=== PATIENT | male | born 1980 | race Caucasian/White ===

== ENCOUNTER 2018-04-05 12:23 | Observation (INO) ==
--- NOTE | 2018-04-05 13:24 | ED ---
HPI General Chief complaint: Medical Clearance Stated complaint: Transfer Time Seen by Provider: 04/05/18 13:04 Source: patient Mode of arrival: other (Transfer from [facility]) Limitations: other (confused) History of Present Illness HPI narrative: 37-year-old male presents the ED as a transfer from [facility] for admission to the neurosurgeon. Initial complaint was altered mental status after being found trespassing and unresponsive in a hot tub. According to accompanying paperwork the girlfriend was present but has now been placed in law enforcement custody. The EMS reported that the patient took Suboxone, Lyrica and Adderall. On presentation the patient is unable to recall any of the events of the last day or 2. He is able to tell me his name and address. He is aware of his current situation. He denies headache, dizziness, vision changes, chest pain, palpitations, shortness of breath, cough , abdominal pain, nausea, vomiting, numbness, tingling, weakness, limitations to range of motion of the extremities. He denies depression, suicidal ideation , psychiatric history. He endorses using Suboxone secondary to previous history of substance abuse. He denies using other illicit substances. Related Data Home Medications Medication Instructions Recorded Confirmed Suboxone 8 mg PO DAILY 04/05/18 04/05/18 Allergies Allergy/AdvReac Type Severity Reaction Status Date / Time No Known Allergies Allergy Verified 04/05/18 13:16 Review of Systems ROS: all other systems reviewed are negative PMFSH Social History Social History Substance History: Active Abuse Second Hand Smoke Exposure: Yes Smoking Status: Current every day smoker Tobacco Type: Cigarettes How Often Do You Have a Drink Containing Alcohol: Never Recent Travel in [facility] within the Last 8 Weeks: No Recent Out of Country Travel within the Last 8 Weeks: No Substance Abuse Detail Heroin: Substance Use Status: Active Route Used Substance Abuse: Intramuscular Reason for Use: Get High Immunization History Tetanus Immunization: Unsure Exam Narrative Exam Narrative: GENERAL: Well-nourished, well-developed white male in no acute distress, sitting up in the stretcher with the head of the bed approximately 30 degrees elevated. SKIN: Focused skin assessment warm/dry. Few abrasions on the dorsum of the left foot. HEAD: Atraumatic. Normocephalic. EYES: Pupils equal and round. No scleral icterus. No injection or drainage. ENT: No nasal bleeding or discharge. Mucous membranes pink and moist. NECK: Trachea midline. No JVD. CARDIOVASCULAR: Regular rate and rhythm. No murmur appreciated. RESPIRATORY: No accessory muscle use. Clear to auscultation. Breath sounds equal bilaterally. GASTROINTESTINAL: Abdomen soft, non-tender, nondistended. Hepatic and splenic margins not palpable. MUSCULOSKELETAL: No obvious deformities. No clubbing. No cyanosis. No edema. NEUROLOGICAL: Awake and alert. No obvious cranial nerve deficits. Motor grossly within normal limits. Normal speech. PSYCHIATRIC: Confused, cooperative Course Initial Documented Vital Signs Temperature 98.9 F 04/05/18 12:58 Pulse Rate 78 04/05/18 12:58 Respiratory Rate 17 04/05/18 12:58 Blood Pressure 129/76 04/05/18 12:58 Pulse Oximetry 100 04/05/18 12:58 Last Documented Vital Signs Temperature 98.9 F 04/05/18 12:58 Pulse Rate 89 04/05/18 16:42 Respiratory Rate 18 04/05/18 16:42 Blood Pressure 123/80 04/05/18 16:42 Pulse Oximetry 100 04/05/18 16:42 Medical Decision Making [facility] Narrative Medical decision making narrative: 37-year-old male presents the ED as a transfer from [facility] after being found unconscious in a hot tub. Workup there showed diffuse cerebral edema nd multiple positive findings on the drug screen. Dr. Esparza, neurosurgeon accepted the transfer. On presentation the patient is alert, somewhat confused, answers questions appropriately, follows commands. No focal neuro deficits. Vitals stable, non- febrile. Lab work from the outside hospital reveals white count of 16.6, hemoglobin 14.4. BUN 13, creatinine 0.86, GFR greater than 90. I spoke with Dr. Esparza. He requests MRI the patient's brain, will come to the emergency room to evaluate the patient. MRI brain without acute findings.Psychiatric screening order placed. I spoke with Dr. Velasco, resident, who agrees to accept the patient for observation to the medicine service. Please see their notes for disposition. Medical Screen Exam Complete: Yes Emergency Medical Condition: Yes Differential Diagnosis Differential Diagnosis: overdose versus Imaging Data Radiologist's impression: Head MRI 04/05/18 13:33 Diffusion weighted images demonstrate no evidence for acute infarction. Air- fluid level in the right maxillary sinus and small mucous retention cysts in the left maxillary sinus. The CSF spaces, ventricles and cisterns are of normal size and configuration. No hemorrhage, infarct, or mass. No abnormal areas of enhancement are identified following contrast administration. A subtle venous angioma is suspected in the right parietal region. CONCLUSION: 1. Right maxillary sinus air-fluid level, left maxillary sinus mucus retention cysts. 2. No evidence for mass, infarct or hemorrhage. No edema. Discharge Plan Discharge Disposition Patient Disposition: 30 Still Patient Physicians Team ED Provider: Clark Chao ED Midlevel Provider: Sabi Stone Primary Care Provider: Primary Care Kaylie Mckay Attending Provider: Wil Mendez Other Providers: Ted Esparza Discharge Interventions Interventions: Vital Signs Last Done: 04/05/18 16:42 Status ED Status: Admitted Observation Patient
[2018-04-05] MEDS ORDERED: Gadobutrol PF 7.5 MMOL/7.5 ML Vial (for RAD) IV.SIG ONE (14:54)
--- NOTE | 2018-04-05 15:07 | MR ---
EXAM DATE: 04/05/2018 2:50 PM EDT AGE/SEX: 37 years / Male INDICATIONS: . Brain edema. Found unresponsive. CLINICAL DATA: This is the patient's initial encounter. Patient reports that signs and symptoms have been present for 2 days and indicates a pain score of 0/10. MEDICAL/SURGICAL HISTORY: None. None. COMPARISON: No prior exams available for comparison. TECHNIQUE: Multiplanar, multisequence examination of the brain was performed without and with 7.5 ml Gadavist (gadobutrol) contrast as a single exam dose. FINDINGS: Diffusion weighted images demonstrate no evidence for acute infarction. Air-fluid level in the right maxillary sinus and small mucous retention cysts in the left maxillary sinus. The CSF spaces, ventric les and cisterns are of normal size and configuration. No hemorrhage, infarct, or mass. No abnormal a reas of enhancement are identified following contrast administration. A subtle venous angioma is susp ected in the right parietal region. CONCLUSION: 1. Right maxillary sinus air-fluid level, left maxillary sinus mucus retention cysts. 2. No evidence for mass, infarct or hemorrhage. No edema. Electronically signed by: Scott Francis MD 04/05/2018 3:06 PM EDT
--- NOTE | 2018-04-05 17:11 | P.HPFP ---
History of Present Illness Primary Care Physician: No Primary Care Physician History of Present Illness: 37-year-old male transferred from [facility] for altered mental status and possible cerebral edema. Patient was found trespassing and unresponsive in a hot tub. Per ED note, patient and intentionally overdose with intent to harm themselves. currently in police custody. EMS reports that patient took Suboxone, Lyrica, and Adderall. Urine drug screen positive for opioids, cocaine, cannabinoids. Patient reports that he "cannot remember anything." States that he last remembers going into the hot tub. He states that he took his usual Suboxone 8 mg last night. He has past medical history of heroin use. States that he lasted here when a couple weeks ago. He states that he had no intent to hurt himself and currently does not have any suicidal thoughts. He reports that his is prescribed Lyrica for nerve pain. He denies weight loss, depressed mood, insomnia, chest pain, shortness of breath, nausea vomiting, headache, and abdominal pain Head CT at [facility] demonstrated diffuse cerebral edema. Case was discussed with Dr. Esparza, on-call neurosurgeon at [facility], accepted patient for transfer for further eval and management. PMHx: Suboxone for past Heroin use- 10years- ran out of suboxone a couple weeks ago and used heroin hx of substance use Hx of Depression and Anxiety- was on Effexor for awhile PSHx: None Allergies: none Meds: Lyrica 200mg Suboxone 8mg daily- last dose was yesterday morning FHx: None SHx: moved from [place], [place], [place] lives with in-laws and no health insurance 1 kid- 13, boy Cigarettes- half a pack/day- for 20 years IV drug use - tested for HIV and hep c years ago - Diagnosis (1) Altered mental status (2) Substance abuse (3) Elevated creatine kinase level (4) Nutrition, metabolism, and development symptoms Review of Systems Constitutional: Denies fever(s), Denies night sweats, Denies weight loss Eyes: Denies change in vision Ears, Nose, Mouth, and Throat: Denies headache(s) Cardiovascular: Denies chest pain Respiratory: Denies cough, Denies shortness of breath Gastrointestinal: Denies abdominal pain Genitourinary: Denies difficulty urinating Musculoskeletal: Denies body aches Skin/Breast: Reports sores (Sores on lower extremities) Neurologic: Denies abnormal movements, Denies abnormal speech, Denies tingling/ numbness/burning sensations Psychiatric: Denies thoughts of hurting/killing yourself PMFSH - History History Provided By: Patient, Medical Record, [employer] Associate / EMT - Medical / Surgical Hx Neg / Unobtainable Surgical History: No Previous Surgery - Surgical History Surgical History: Surgical History (Last Updated 04/05/18 @ 21:16 by Kiara Velasco MD, R2) No history of previous surgery - Family History Family History: Family History (Last Updated 04/05/18 @ 21:15 by Kiara Velasco MD, R2) Other No history of previous surgery - Social History I have reviewed the patient's Social History: Yes - Tobacco History Second Hand Smoke Exposure: Yes Tobacco Use In Past 30 Days: Yes Smoking Status: Current every day smoker Tobacco Type: Cigarettes - Alcohol History How Often Do You Have a Drink Containing Alcohol: Never - Substance Use History Substance History: Active Abuse - Substance Use Type Heroin Status: Active Route Used: Intramuscular Reason for Use: Get High - Travel History Recent Travel in the [facility] Within the Last 8 Weeks: No Recent Travel Out of the Country Within the Last 8 Weeks: No - Immunization History Tetanus Immunization: Unsure Medications and Allergies Allergies Allergy/AdvReac Type Severity Reaction Status Date / Time No Known Allergies Allergy Verified 04/05/18 13:16 Home Medications Medication Instructions Recorded Confirmed Type Suboxone 8 mg PO DAILY 04/05/18 04/05/18 History Exam Vital signs: Vital Signs 04/05/18 12:58 04/05/18 16:42 Temperature 98.9 F Pulse Rate 78 89 Respiratory Rate 17 18 Blood Pressure 129/76 123/80 Pulse Oximetry 100 100 Intake & Output 04/04/18 04/05/18 04/05/18 18:59 06:59 18:59 Weight 81.647 kg Narrative: General: Well-nourished male in no acute distress Skin: Bruises and scratches on lower extremities HEENT: Pinpoint pupils, NC/AC, no lymphadenopathy, throat clear Cardio: Regular rate rhythm, no murmurs rubs or gallops Pulmonary: Clear to auscultation bilaterally, no wheezes or crackles Abdomen: Soft, nontender, nondistended, positive bowel sounds, no guarding, no rebound Extremities: No cyanosis or edema Neuro: Alert and oriented x3 Psych: No suicidal ideation Results - Imaging Impressions Head MRI 04/05/18 13:33 Diffusion weighted images demonstrate no evidence for acute infarction. Air- fluid level in the right maxillary sinus and small mucous retention cysts in the left maxillary sinus. The CSF spaces, ventricles and cisterns are of normal size and configuration. No hemorrhage, infarct, or mass. No abnormal areas of enhancement are identified following contrast administration. A subtle venous angioma is suspected in the right parietal region. CONCLUSION: 1. Right maxillary sinus air-fluid level, left maxillary sinus mucus retention cysts. 2. No evidence for mass, infarct or hemorrhage. No edema. Caprini VTE Risk Assessment Caprini VTE Risk Assessment: No/Low Risk (score <= 1) Caprini Risk Assessment Model: Point Value = 1 Point Value = 2 Point Value = 3 Point Value = 5 Age 41-60 Minor surgery BMI > 25 kg/m2 Swollen legs Varicose veins or History of unexplained or recurrent spontaneous Oral contraceptives or hormone replacement Sepsis (< 1 month) Serious lung disease, including pneumonia (< 1 month) Abnormal pulmonary function Acute myocardial infarction Congestive heart failure (< 1 month) History of inflammatory bowel disease Medical patient at bed rest Age 61-74 Arthroscopic surgery Major open surgery (> 45 min) Laparoscopic surgery (> 45 min) Malignancy Confined to bed (> 72 hours) Immobilizing plaster cast Central venous access Age >= 75 History of VTE Family history of VTE Factor V Leiden Prothrombin [id number] Lupus anticoagulant Anticardiolipin antibodies Elevated serum homocysteine Heparin-induced thrombocytopenia Other congenital or acquired thrombophilia Stroke (< 1 month) Elective arthroplasty Hip, pelvis, or leg fracture Acute spinal cord injury (< 1 month) Prophylaxis Regimen: Total Risk Factor Score Risk Level Prophylaxis Regimen 0-1 Low Early ambulation 2 Moderate Order ONE of the following: *Sequential Compression Device (SCD) *Heparin 5000 units SQ BID 3-4 Higher Order ONE of the following medications: *Heparin 5000 units SQ TID *Enoxaparin/Lovenox 40 mg SQ daily (WT < 150 kg, CrCl > 30 mL/min) *Enoxaparin/Lovenox 30 mg SQ daily (WT < 150 kg, CrCl > 10-29 mL/min) *Enoxaparin/Lovenox 30 mg SQ BID (WT < 150 kg, CrCl > 30 mL/min) AND/OR *Sequential Compression Device (SCD) 5 or more Highest Order ONE of the following medications: *Heparin 5000 units SQ TID (Preferred with Epidurals) *Enoxaparin/Lovenox 40 mg SQ daily (WT < 150 kg, CrCl > 30 mL/min) *Enoxaparin/Lovenox 30 mg SQ daily (WT < 150 kg, CrCl > 10-29 mL/min) *Enoxaparin/Lovenox 30 mg SQ BID (WT < 150 kg, CrCl > 30 mL/min) AND *Sequential Compression Device (SCD) Assessment and Plan - Assessment (1) Altered mental status Code(s): R41.82 - Altered mental status, unspecified Status: Acute Plan: 37-year-old male transferred from [facility] for altered mental status and possible cerebral edema. Head CT at [facility] demonstrated diffuse cerebral edema. Case was discussed with Dr. Esparza, on- call neurosurgeon at [facility], accepted patient for transfer for further eval management. MRI negative for cerebral edema No active neurosurgical issues Patient is currently alert and oriented Urine drug screen was positive for opioids, cocaine, and cannabinoids Salicylate negative. Alcohol level negative HIV and hepatitis panel pending (2) Substance abuse Code(s): F19.10 - Other psychoactive substance abuse, uncomplicated Status: Acute Plan: Patient reports being currently on Suboxone 8 mg daily. Discussed with pharmacy. Unable to prescribe Suboxone while in the hospital. If patient begins to withdrawal, will consider methadone. (3) Elevated creatine kinase level Code(s): R74.8 - Abnormal levels of other serum enzymes Status: Acute Plan: Creatinine kinase at 523 Normal saline 120mls/hr continue to monitor (4) Nutrition, metabolism, and development symptoms Code(s): R63.8 - Other symptoms and signs concerning food and fluid intake Status: Acute Plan: Fluids: NS 120mls/hr Diet: regular vitals q4h, monitor I & Os DVT ppx: early ambulation
[2018-04-05] MEDS ORDERED: SUBOXONE 8 MG PO SCH (17:45)
--- NOTE | 2018-04-05 18:13 | P.CONNS ---
History of Present Illness Primary Care Provider: No Primary Care Physician History of Present Illness: CC: 37yoM intoxicated found in a hot tub, altered mental status and outside hospital imaging suggesting cerebral edema. Seen here and following commands though confused. MRI Brain performed and read as normal, no evidence of edema. History consistent with intoxication, outside imaging not sent for review. Patient alert and oriented, following commands here though exam inconsistent. PMFSH - History History Provided By: Patient, Medical Record, Roofing Tile Sorter / EMT - Tobacco History Second Hand Smoke Exposure: Yes Tobacco Use In Past 30 Days: Yes Smoking Status: Current every day smoker Tobacco Type: Cigarettes - Alcohol History How Often Do You Have a Drink Containing Alcohol: Never - Substance Use History Substance History: Active Abuse - Substance Use Type Heroin Status: Active Route Used: Intramuscular Reason for Use: Get High - Travel History Recent Travel in the [place] Within the Last 8 Weeks: No Recent Travel Out of the Country Within the Last 8 Weeks: No - Immunization History Tetanus Immunization: Unsure Medications and Allergies Active Medications: Active Medications Non-Formulary Medication (Suboxone) 8 mg PO DAILY [place] Allergies Allergy/AdvReac Type Severity Reaction Status Date / Time No Known Allergies Allergy Verified 04/05/18 13:16 Home Medications Medication Instructions Recorded Confirmed Type Suboxone 8 mg PO DAILY 04/05/18 04/05/18 History Exam Vital signs: Vital Signs 04/05/18 12:58 04/05/18 16:42 Temperature 98.9 F Pulse Rate 78 89 Respiratory Rate 17 18 Blood Pressure 129/76 123/80 Pulse Oximetry 100 100 Intake & Output 04/04/18 04/05/18 04/05/18 18:59 06:59 18:59 Weight 81.647 kg Narrative: A&O x 3 CN II-XII intact Motor 5/5 UE/LE Reflexes symmetric physiologic Assessment and Plan - Plan 37yoM with reported cerebral edema, but MRI here normal, following commands, history of intoxication. Plan: No active neurosurgical issues. Defer to primary evaluation re: observation overnight after possible intoxication elsewhere.
[2018-04-05] MEDS ORDERED: Senna/Docusate Sodium 8.6/50 MG Tablet PO SCH (21:00)
[2018-04-05 21:32] LABS: CKMB Percent 0.5 % (0.0-4.0); Creatine Kinase MB 2.4 ng/mL (0.5-3.6); Hepatitits B Surface Antigen Nonreactive (Nonreactive)
[2018-04-05 21:57] LABS: Hepatitis A IgM Antibody Nonreactive (Nonreactive)
[2018-04-05] MEDS: Sod Chloride 0.9% Inj 1,000 ML IV.CONT SCH (23:03)
[2018-04-06 05:08] LABS: Baso % (Auto) 0.1 % (0.0-2.0); Eos # (Auto) 0.1 th/mm3 (0.0-0.4); Eos % (Auto) 0.4 % (0.0-4.0); Hemoglobin 13.5 gm/dL (13.0-17.0); Lymph # (Auto) 1.9 th/mm3 (1.0-4.8); Lymph % (Auto) 13.6 % (9.0-44.0); Mean Corpuscular HGB Conc 35.6 % (32.0-36.0); Mean Corpuscular Hemoglobin 31.5 pg (27.0-34.0); Mean Corpuscular Volume 88.5 fL (80.0-100.0); Mean Platelet Volume 7.9 fL (7.0-11.0); Neut # (Auto) 10.9 th/mm3 (1.8-7.7); Neut % (Auto) 78.9 % (16.0-70.0); Platelet Count 343 th/mm3 (150-450); Red Cell Distribution Width 13.7 % (11.6-17.2); White Blood Count 13.8 th/mm3 (4.0-11.0)
[2018-04-06 05:35] LABS: Anion Gap 8 meq/L (5-15); Blood Urea Nitrogen 15 mg/dL (7-18); Calcium 8.3 mg/dL (8.5-10.1); Carbon Dioxide 26.1 meq/L (21.0-32.0); Chloride 105 meq/L (98-107); Glomerular Filtration Rate Greater Than 89 mL/min (>89); Glucose,Random 93 mg/dL (74-106); Potassium 3.6 meq/L (3.5-5.1); Sodium 139 meq/L (136-145)
[2018-04-06 05:37] LABS: Creatine Kinase 320 U/L (39-308)
[2018-04-06] MEDS: Sod Chloride 0.9% Inj 1,000 ML IV.CONT SCH (05:39)
[2018-04-06 05:57] LABS: CKMB Percent 0.5 % (0.0-4.0); Creatine Kinase MB 1.6 ng/mL (0.5-3.6)
[2018-04-06 08:11] VITALS: RESP 16
[2018-04-06 09:08] LABS: Hematocrit 39.6 % (39.0-51.0); Hemoglobin 13.5 gm/dL (13.0-17.0); Mean Corpuscular Hemoglobin 30.8 pg (27.0-34.0); Mean Corpuscular Volume 90.7 fL (80.0-100.0); Mean Platelet Volume 8.2 fL (7.0-11.0); Platelet Count 335 th/mm3 (150-450); Red Blood Count 4.37 mil/mm3 (4.50-5.90); Red Cell Distribution Width 13.6 % (11.6-17.2); White Blood Count 13.4 th/mm3 (4.0-11.0)
[2018-04-06 11:53] VITALS: BP 116/66; PULSE 82; TEMP 98.6; O2SAT 100
--- NOTE | 2018-04-06 13:51 | P.PNFP ---
Subjective Interval history: Patient was seen at bedside this morning. There were no acute events overnight. Patient reports feeling well but does not remember being brought into the hospital or why he is here. Patient reports that his went home yesterday and will be picking him up this morning. Patient requested that I call his and asked her to bring clothes but could not reach her via phone. Patient had no further question patient denies any subjective fevers, chills, shortness of breath, chest pain, nausea, or vomiting. All questions were answered to the patient's satisfaction. <Stevie Alvarez - 04/06/18 13:51> Results - Labs Result diagrams: 04/06/18 08:18 04/06/18 04:13 <Wil Mendez - 04/07/18 18:35> Abnormal lab results 04/05/18 04/05/18 04/06/18 Range/Units 19:50 19:50 04:13 WBC 13.8 H (4.0-11.0) th/mm3 RBC 4.30 L (4.50-5.90) mil/mm3 Hct 38.0 L (39.0-51.0) % Neut % (Auto) 78.9 H (16.0-70.0) % Neut # (Auto) 10.9 H (1.8-7.7) th/mm3 [place] # (Auto) 1.0 H (0.0-0.9) th/mm3 Calcium (8.5-10.1) mg/dL Total Creatine Kinase 523 H (39-308) U/L Salicylates Less than 1.7 L (2.8-20.0) mg/dL 04/06/18 04/06/18 Range/Units 04:13 08:18 WBC 13.4 H (4.0-11.0) th/mm3 RBC 4.37 L (4.50-5.90) mil/mm3 Hct (39.0-51.0) % Neut % (Auto) (16.0-70.0) % Neut # (Auto) (1.8-7.7) th/mm3 [place] # (Auto) (0.0-0.9) th/mm3 Calcium 8.3 L (8.5-10.1) mg/dL Total Creatine Kinase 320 H (39-308) U/L Salicylates (2.8-20.0) mg/dL Short CBC 04/06/18 04/06/18 Range/Units 04:13 08:18 WBC 13.8 H 13.4 H (4.0-11.0) th/mm3 Hgb 13.5 13.5 (13.0-17.0) gm/dL Hct 38.0 L 39.6 (39.0-51.0) % Plt Count 343 335 (150-450) th/mm3 BMP 04/06/18 04:13 Sodium 139 Potassium 3.6 Chloride 105 Carbon Dioxide 26.1 BUN 15 Creatinine 0.77 Calcium 8.3 L Cardiac Enzymes 04/05/18 04/06/18 Range/Units 19:50 04:13 Total Creatine Kinase 523 H 320 H (39-308) U/L CK-MB (CK-2) 2.4 1.6 (0.5-3.6) ng/mL <Stevie Alvarez - 04/06/18 13:51> - Imaging Impressions Head MRI 04/05/18 13:33 Diffusion weighted images demonstrate no evidence for acute infarction. Air- fluid level in the right maxillary sinus and small mucous retention cysts in the left maxillary sinus. The CSF spaces, ventricles and cisterns are of normal size and configuration. No hemorrhage, infarct, or mass. No abnormal areas of enhancement are identified following contrast administration. A subtle venous angioma is suspected in the right parietal region. CONCLUSION: 1. Right maxillary sinus air-fluid level, left maxillary sinus mucus retention cysts. 2. No evidence for mass, infarct or hemorrhage. No edema. <Stevie Alvarez - 04/06/18 13:51> Physical Exam Vital signs: Vital Signs 04/05/18 16:42 04/05/18 19:38 04/06/18 00:00 Temperature 98.6 F 98.5 F Pulse Rate 89 88 71 Respiratory Rate 18 14 18 Blood Pressure 123/80 120/66 118/67 Pulse Oximetry 100 98 97 04/06/18 08:00 04/06/18 11:52 Temperature 98.3 F 98.6 F Pulse Rate 73 82 Respiratory Rate 16 16 Blood Pressure 106/74 116/66 Pulse Oximetry 99 100 Intake & Output 04/05/18 04/06/18 04/06/18 18:59 06:59 18:59 Intake Total 1000 / 1000 Output Total 550 / 550 Balance 450 / 450 Weight 81.647 kg Intake: IV 1000 / 1000 NS Inj 1,000 ML @ 120 mls/hr IV 1000 / 1000 .CONT .[id number] [facility] Rx#:[id number] Output: Urine 550 / 550 Other: Date of Last Bowel Movement 04/05/18 <Setvie Alvarez Martha - 04/06/18 13:51> Narrative: General: Well-nourished male in no acute distress Skin: Bruises and scratches on lower extremities HEENT: PERRLA, EOMI Cardio: Regular rate rhythm, no murmurs rubs or gallops Pulmonary: Clear to auscultation bilaterally, no wheezes or crackles Abdomen: Soft, nontender, nondistended, positive bowel sounds, no guarding, no rebound Extremities: No cyanosis or edema Neuro: Alert and oriented x3 <Stevie Alvarez O - 04/06/18 13:51> Assessment and Plan - Assessment (1) Altered mental status Code(s): R41.82 - Altered mental status, unspecified Status: Acute (2) Substance abuse Code(s): F19.10 - Other psychoactive substance abuse, uncomplicated Status: Acute (3) Elevated creatine kinase level Code(s): R74.8 - Abnormal levels of other serum enzymes Status: Acute (4) Nutrition, metabolism, and development symptoms Code(s): R63.8 - Other symptoms and signs concerning food and fluid intake Status: Acute <Wil Mendez - 04/07/18 18:35> (1) Altered mental status Code(s): R41.82 - Altered mental status, unspecified Status: Acute Plan: 37-year-old male transferred from [facility] for altered mental status and possible cerebral edema. Head CT at [facility] demonstrated diffuse cerebral edema. Case was discussed with Dr. Esparza, on- call neurosurgeon at [place], accepted patient for transfer for further valuation and management. MRI negative for cerebral edema No active neurosurgical issues Patient is currently alert and oriented Urine drug screen was positive for opioids, cocaine, and cannabinoids Salicylate negative. Alcohol level negative HIV and hepatitis panel nonreactive Patient may be discharged home to follow-up with outpatient provider (2) Substance abuse Code(s): F19.10 - Other psychoactive substance abuse, uncomplicated Status: Acute Plan: Patient reports being currently on Suboxone 8 mg daily. Discussed with pharmacy. Unable to prescribe Suboxone while in the hospital. If patient begins to withdrawal, will consider methadone. (3) Elevated creatine kinase level Code(s): R74.8 - Abnormal levels of other serum enzymes Status: Acute Plan: Creatinine kinase at 523 on admission 320 this morning. Creatinine kinase down downtrending. Patient able to drink fluids p.o., BUN/creatinine within normal limits. Hydrate p.o. (4) Nutrition, metabolism, and development symptoms Code(s): R63.8 - Other symptoms and signs concerning food and fluid intake Status: Acute Plan: Fluids: Not indicated at this time patient may drink fluids p.o. Diet: regular vitals q4h, monitor I & Os DVT ppx: early ambulation <Stevie Alvarez - 04/06/18 13:43> - Attending Attestation The exam, history, and the medical decision-making described in the above note were completed with the assistance of the resident physician. I reviewed and agree with the findings presented. I attest that I had a [id number] encounter with the patient on the same day, and personally performed and documented my assessment and findings in the medical record. <Wil Mendez - 04/07/18 18:35>
== END 2018-04-06 14:30 | disposition home or self-care (01) ==
LOC: NEPE 12:23 → NEDA 12:23 → NEPFCDU 17:40
PROVIDERS: ADMIT Family Medicine; ATTEND Family Medicine